=== PATIENT | female | born 1990 | race Two or more races ===

== ENCOUNTER 2017-12-26 14:21 | Emergency (ER) | payer BC, OTHER ==
[~2017-12-26] VITALS: Ht 152.4 cm; Wt 60.8 kg
[2017-12-26 14:21] VITALS: BP 110/83
[2017-12-26] MEDS ORDERED: ALPRAZOLAM 0.25 MG TABLET PO ONE (15:00)
[2017-12-26] MEDS ORDERED: ALPRAZOLAM 0.25 MG TABLET ONE (15:01)
== END 2017-12-26 15:07 | disposition home or self-care (01) ==
LOC: ER 14:26
DX: F41.9 Anxiety disorder, unspecified (principal); Z90.89 Acquired absence of other organs
CPT/HCPCS: 99284; A4606; Z7610

== ENCOUNTER 2019-06-27 05:40 | Emergency (ER) | payer OTHER ==
[~2019-06-27] VITALS: Ht 154.9 cm; Wt 60.8 kg
--- NOTE | 2019-06-27 06:00 | NUR ---
BIBS. C/O "HAVING LOWER ABDOMINAL PAIN FOR AROUND X2 DAYS. HAVING DIARRHEA, +NAUSEA/VOMITTING" -SOB AOX4. VSS. AMBULATORY
[2019-06-27] MEDS ORDERED: ONDANSETRON HCL/PF 4 MG/2 ML VIAL ONE (06:12)
[2019-06-27] MEDS ORDERED: FAMOTIDINE/PF INJ 20 MG/2 ML VIAL IV ONE ×2 (06:12→06:30)
[2019-06-27] MEDS ORDERED: MORPHINE SULFATE INJ 4 MG/ML DISP.SYRIN ONE (06:12)
--- NOTE | 2019-06-27 06:27 | NUR ---
LABS DRAWN. PATIENT MEDICATED. VSS. AOX4. -SOB NOTED. -ACUTE DISTRESS AT THIS TIME.
[2019-06-27] MEDS ORDERED: IV NS 0.9% 1,000 ML BAG IV ONE (06:30)
[2019-06-27] MEDS ORDERED: ONDANSETRON HCL/PF 4 MG/2 ML VIAL IVP ONE (06:30)
[2019-06-27] MEDS ORDERED: MORPHINE SULFATE INJ 2 MG/ML DISP.SYRIN IV ONE (06:30)
[2019-06-27 06:39] LABS: CALCIUM, SERUM 8.9 mg/dL (8.5-10.1); CREATININE 0.7 mg/dL (0.6-1.3)
[2019-06-27 06:42] LABS: BASOPHILS % (AUTO) 0.2 % (0.0-2.0); EOSINOPHILS % (AUTO) 0.3 % (0.0-6.0); HEMATOCRIT 42 % (33-45); HEMOGLOBIN 14.2 g/dL (11.5-14.8); LYMPHOCYTES # (AUTO) 1.8 /CMM (0.8-4.8); LYMPHOCYTES % (AUTO) 18.9 % (20.0-44.0); MEAN CORPUSCULAR HGB CONC 34 g/dl (31.0-36.0); MEAN CORPUSCULAR VOLUME 87 fL (82-100); MONOCYTES # (AUTO) 0.6 /CMM (0.1-1.30); MONOCYTES % (AUTO) 6.3 % (2.0-12.0); NEUTROPHILS % (AUTO) 74.3 % (43.0-81.0); PLATELET COUNT (AUTO) 248 /CMM (150-450); RED BLOOD CELL COUNT(AUTO) 4.84 MIL/uL (4.0-5.2); WHITE BLOOD COUNT (AUTO) 9.5 K/uL (4.3-11.0)
[2019-06-27 06:44] LABS: BILIRUBIN,DIRECT 0.1 mg/dL (0.0-0.2); BILIRUBIN,TOTAL 0.3 mg/dL (0.2-1.0); TOTAL PROTEIN, SERUM 7.6 g/dL (6.4-8.2)
--- NOTE | 2019-06-27 07:03 | NUR ---
Patient is resting comfortably in bed with eyes closed. Easily aroused. VSS
[2019-06-27 09:02] VITALS: BP 121/85
--- NOTE | 2019-06-27 09:02 | NUR ---
Patient discharged to home in stable condition. Written and verbal after care instructions given. Patient verbalizes understanding of instruction. IV removed. Catheter intact and site benign. Pressure and 4x4 applied to site. No bleeding noted.
== END 2019-06-27 09:03 | disposition home or self-care (01) ==
LOC: ER 05:44
DX: R11.2 Nausea with vomiting, unspecified (principal); R19.7 Diarrhea, unspecified; R10.30 Lower abdominal pain, unspecified; Z90.89 Acquired absence of other organs
CPT/HCPCS: 36415; 80048; 80076; 83690; 85025; 96361; 96374; 96375; 99283; J2270; J2405; J3490; J7030

== ENCOUNTER 2020-01-29 14:54 | Emergency (ER) | payer BC, OTHER ==
[~2020-01-29] VITALS: Ht 152.4 cm; Wt 63.5 kg
[2020-01-29 15:00] VITALS: BP 120/75
--- NOTE | 2020-01-29 15:04 | NUR ---
AT BEDSIDE FOR EVAL
--- NOTE | 2020-01-29 15:10 | NUR ---
ALTON GODFREY AT BEDSIDE FOR EKG.
[2020-01-29] MEDS ORDERED: LORAZEPAM 0.5 MG TABLET ONE (15:12)
[2020-01-29] MEDS: LORAZEPAM 1 MG TABLET PO ONE (15:14)
--- NOTE | 2020-01-29 15:32 | NUR ---
Patient discharged to home in stable condition. Written and verbal after care instructions given. Patient verbalizes understanding of instruction.
== END 2020-01-29 15:33 | disposition home or self-care (01) ==
LOC: ER 14:55
DX: F41.9 Anxiety disorder, unspecified (principal); Z90.89 Acquired absence of other organs

== ENCOUNTER 2022-03-30 19:11 | Emergency (ER) | payer BC, OTHER ==
[~2022-03-30] VITALS: Ht 154.9 cm; Wt 76.2 kg
--- NOTE | 2022-03-30 20:45 | NUR ---
TO ER BED 2. BIBFAMILY. C/O R FACE NUMBNESS, BILAT ARM NUMBNESS, BILAT LOWER LEGS TINGLING CHEST PAIN SHARP RADIAITING TO BACK X 1200. PT IS ALERT AND ORIENTED , HX ANXIETY, WORSE TODAY. NO BILATERAL WEAKNESS OR FACIAL DROOP NOTED. RR EVEN AND NON LABORED. CONNECTED TO MONITOR. AWAITING MD BAJWA
--- NOTE | 2022-03-30 21:38 | NUR ---
LAB AT BEDSIDE
[2022-03-30 21:51] LABS: BASOPHILS % (AUTO) 0.3 % (0.0-2.0); EOSINOPHILS % (AUTO) 0.1 % (0.0-6.0); HEMATOCRIT 42 % (33-45); LYMPHOCYTES # (AUTO) 1.9 K/uL (0.8-4.8); LYMPHOCYTES % (AUTO) 18.3 % (20.0-44.0); MEAN CORPUSCULAR HGB CONC 34 g/dl (31.0-36.0); MEAN CORPUSCULAR VOLUME 84 fL (82-100); MONOCYTES # (AUTO) 0.6 K/uL (0.1-1.30); MONOCYTES % (AUTO) 5.5 % (2.0-12.0); NEUTROPHILS # (AUTO) 7.8 K/uL (1.8-8.9); NEUTROPHILS % (AUTO) 75.8 % (43.0-81.0); PLATELET COUNT (AUTO) 280 K/uL (150-450); RED BLOOD CELL COUNT(AUTO) 4.93 MIL/uL (4.0-5.2); WHITE BLOOD COUNT (AUTO) 10.3 K/uL (4.3-11.0)
[2022-03-30 22:18] LABS: CALCIUM, SERUM 9.2 mg/dL (8.5-10.1); CARBON DIOXIDE 29 mmol/L (21-32); CHLORIDE 104 mmol/L (98-107); GLUCOSE 107 mg/dL (74-106); POTASSIUM 3.9 mmol/L (3.5-5.1); SODIUM SERUM 138 mmol/L (136-145); UREA NITROGEN, BLOOD 14 mg/dL (7-18)
--- NOTE | 2022-03-30 22:48 | NUR ---
Patient discharged to home in stable condition. Written and verbal after care instructions given. Patient verbalizes understanding of instruction.
[2022-03-30 22:49] VITALS: BP 108/67
== END 2022-03-30 22:49 | disposition home or self-care (01) ==
LOC: ER 19:17
DX: R07.89 Other chest pain (principal); F41.9 Anxiety disorder, unspecified; R20.2 Paresthesia of skin; Z90.89 Acquired absence of other organs
CPT/HCPCS: 36415; 71045-TC; 80048-TC; 84484-TC; 85025-TC